=== PATIENT | female | born 1990 | race African-American/Black ===

== ENCOUNTER 2018-09-06 18:30 | Emergency (ER) | payer OTHER ==
--- NOTE | 2018-09-06 18:48 | PDOC ---
Rapid Medical Evaluation Time Seen by Provider: 09/06/18 18:47 Medical Evaluation: Allergies Allergy/AdvReac Type Severity Reaction Status Date / Time No Known Allergies Allergy Verified 04/09/16 15:01 09/06/18 18:47 I performed a brief in-person evaluation of this patient. Chief complaint: , cramping and spotting, u/s at outside facility showed no IUP ("too early") Pertinent physical exam findings: Pain and tenderness R>L I have ordered the following: CBC, BMP, beta hcg, T&S, u/s r/o ectopic Patient to proceed to the ED for further evaluation. Discharge Disposition - Diagnosis Vaginal bleeding during - Referrals - Patient Instructions - Post Discharge Activity
[2018-09-06 18:52] VITALS: BP 114/59; PULSE 85; TEMP 98.6; BMI 29.9
[2018-09-06 19:15] LABS: BASO % 0.3 % (0-2.0); EOS % 0.5 % (0-4.5); HEMATOCRIT 37.3 % (32.4-45.2); HEMOGLOBIN 12.6 GM/dL (10.7-15.3); LYMPH % 23.6 % (8-40); MCH 25.4 pg (25.7-33.7); MCHC 33.7 g/dl (32.0-36.0); MEAN CELL VOLUME 75.6 fl (80-96); MEAN PLT VOLUME 7.5 fl (7.5-11.1); MONO % 14.3 % (3.8-10.2); NEUT % 61.3 % (42.8-82.8); PLATELET COUNT 264 K/MM3 (134-434); RBC 4.93 M/mm3 (3.60-5.2); RDW 14.1 % (11.6-15.6); WHITE BLOOD COUNT 7.2 K/mm3 (4.0-10.0)
[2018-09-06 19:59] LABS: ANION GAP 8 MMOL/L (8-16); BLOOD UREA NITROGEN 11 mg/dL (7-18); CALCIUM 9.2 mg/dL (8.5-10.1); CHLORIDE 107 mmol/L (98-107); CO2 24 mmol/L (21-32); CREATININE 0.8 mg/dL (0.55-1.3); GLUCOSE,RANDOM 81 mg/dL (74-106); SODIUM 139 mmol/L (136-145)
--- NOTE | 2018-09-06 20:29 | PDOC ---
History of Present Illness - General Chief Complaint: Vaginal Bleeding Stated Complaint: 8 WKS /SPOTTING/CRAMPING Time Seen by Provider: 09/06/18 18:47 History Source: Patient Exam Limitations: No Limitations - History of Present Illness Initial Comments: 09/06/18 20:23 Pt is a 28yo F A3 at 4 weeks gestation based on conception and hormone dating presenting to ED with complaints of vaginal spotting that started today associated with cramping and back pain. She states the bleeding has been light, and would not have soaked a pad. She has irregular periods and has been [facility] during this . She had a sonogram done which could not visualize an IUP at the time. She was told to come to the emergency room if she had vaginal bleeding. She denies lightheadedness, palpitations, sob , vaginal discharge, fevers, chills. PMD: Matt Hernandez PMH: none PSH: D&C Meds: none Allergies: nkda Social: occasional alcohol use, hookah Past History - Past Medical History Allergies/Adverse Reactions: Allergies Allergy/AdvReac Type Severity Reaction Status Date / Time No Known Allergies Allergy Verified 09/06/18 18:47 Home Medications: Ambulatory Orders NK [No Known Home Medication] 09/06/18 Asthma: No Cancer: No Cardiac Disorders: No COPD: No Diabetes: No HTN: No Seizures: No Thyroid Disease: No - Reproductive History (#): 4 Para: 0 Cervical CA: No Dysfunctional Uterine Bleeding: No Ectopic : No Endometrial CA: No Polycystic Ovaries: No Therapeutic (s) & number: No Tubal Ligation: No Spontaneous : 3 - Immunization History Immunization Up to Date: Yes - Suicide/Smoking/Psychosocial Hx Smoking Status: No Smoking History: Current some day smoker Have you smoked in the past 12 months: No Number of Cigarettes Smoked Daily: 1 Information on smoking cessation initiated: No Hx Alcohol Use: No Drug/Substance Use Hx: No Hx Substance Use Treatment: No Review of Systems - Review of Systems Constitutional: No: Chills, Fever HEENTM: No: Symptoms Reported Respiratory: No: Symptoms reported ABD/GI: Yes: See HPI, Abdominal cramping : Yes: See HPI Musculoskeletal: No: Back Pain, Joint Pain, Neck Pain Integumentary: No: Symptoms Reported Neurological: No: Symptoms reported *Physical Exam - Vital Signs Last Vital Signs Temp Pulse Resp BP Pulse Ox 98.6 F 85 16 114/59 L 100 09/06/18 18:48 09/06/18 18:48 09/06/18 18:48 09/06/18 18:48 09/06/18 18:48 - Physical Exam General Appearance: Yes: Nourished, Appropriately Dressed. No: Apparent Distress HEENT: positive: EOMI, REAL Neck: positive: Trachea midline, Supple Respiratory/Chest: positive: Lungs Clear, Normal Breath Sounds Cardiovascular: positive: Regular Rhythm, Regular Rate Vascular Pulses: Carotid (R): 2+, Carotid (L): 2+, Dorsalis-Pedis (R): 2+, Doralis-Pedis (L): 2+ Gastrointestinal/Abdominal: positive: Normal Bowel Sounds, Tender (slight suprapubic tenderness), Soft Musculoskeletal: negative: CVA Tenderness, Vertebral Tenderness Extremity: positive: Normal Capillary Refill, Normal Inspection Integumentary: positive: Normal Color, Dry, Warm Neurologic: positive: fruit trimmer II-XII NML intact, Fully Oriented, Alert, Normal Mood/ Affect, Normal Response, Motor Strength 5/5 Moderate Sedation - Procedure Monitoring Vital Signs: Procedure Monitoring Vital Signs Temperature 98.6 F 09/06/18 18:48 Pulse Rate 85 09/06/18 18:48 Respiratory Rate 16 09/06/18 18:48 Blood Pressure 114/59 L 09/06/18 18:48 O2 Sat by Pulse Oximetry (%) 100 09/06/18 18:48 ED Treatment Course - LABORATORY CBC & Chemistry Diagram: 09/06/18 18:57 09/06/18 18:57 - ADDITIONAL ORDERS Additional order review: Laboratory Results 09/06/18 18:57 Sodium 139 Potassium 4.0 Chloride 107 Carbon Dioxide 24 Anion Gap 8 BUN 11 Creatinine 0.8 Creat Clearance w eGFR 86.70 Random Glucose 81 Calcium 9.2 Beta HCG, Quant 6418.9 09/06/18 18:57 RBC 4.93 MCV 75.6 L MCHC 33.7 RDW 14.1 D MPV 7.5 Neutrophils % 61.3 Lymphocytes % 23.6 D Monocytes % 14.3 H Eosinophils % 0.5 Basophils % 0.3 Medical Decision Making - Medical Decision Making 09/06/18 20:28 Pt is a 28yo F A3 at 4 weeks gestation based on conception and hormone dating presenting to ED with complaints of vaginal spotting that started today associated with cramping and back pain. She states the bleeding has been light, and would not have soaked a pad. She has irregular periods and has [facility] . She had a sonogram done which could not visualize an IUP at the time. She was told to come to the emergency room if she had vaginal bleeding. She denies lightheadedness, palpitations, sob , vaginal discharge, fevers, chills. Vitals: wnl PE: no blood in vaginal vault. slight abdominal tenderness, no blood in vaginal vault ddx includes but not limited to ectopic, (spontaneous v. inevitable v. threatened) labs and TVUS ordered by EVELYN novoa. TVUS shows 5week IUP with yolk sac. Pt interested in elective . Pt should follow up with director of corporate real estate or pp for options. Pt told to return here, at ob office or pp for repeat testing and tvus. pt otherwis stable. can be dc home. 09/07/18 06:36 *DC/Admit/Observation/Transfer Diagnosis at time of Disposition: Vaginal bleeding during - Discharge Dispostion Disposition: HOME Condition at time of disposition: Good Decision to Admit order: No - Referrals Referrals: Juarez Hernandez MD [Primary Care Provider] - - Patient Instructions Printed Discharge Instructions: DI for Vaginal Bleeding During Additional Instructions: You were seen in the emergency room today for vaginal bleeding during . The hormone level correlates to a 3-4 week and the ultrasound shows what maybe a 5 week intrauterine . You would need to come back here, to your [facility] or [facility] in 2 days for repeat hormone testing and ultrasound to see if the is viable or not. Come back to the emergency room if you have increasing pain, have vaginal bleeding with soaking of 1 pad/hr or more, are passing clots, you feel lightheaded or if any new concerning symptom develops. Thank you - Post Discharge Activity
--- NOTE | 2018-09-06 22:00 | PDOC ---
Attending Attestation - HPI HPI: The patient is a 28 year old female A3 at 4 weeks gestation (according to conception & hormone dating), with no significant PMH, who presents to the emergency department today complaining of vaginal bleeding for one day. Patient reports light vaginal spotting this morning, and endorses associated cramping and back pain. Patient had sonogram, but IUP could not be visualized and was advised to come to the ED if she experienced any vaginal bleeding. The patient denies chest pain, shortness of breath, headache and dizziness. Denies fever, chills, nausea, vomit, diarrhea and constipation. Denies dysuria, frequency, urgency and hematuria. Allergies: NKA Past surgical history: None reported Social history: Occasional EtOH consumption, hookah use PCP: Dr. Juarez Hernandez O[facility]: [facility] 09/06/18 22:28 - Physicial Exam PE: ADULT PE GENERAL: The patient is in no acute distress. HEAD: Normal with no signs of trauma. EYES: PERRLA, EOMI, sclera anicteric, conjunctiva clear. ENT: Ears normal, nares patent, oropharynx clear without exudates. Moist mucous membranes. NECK: Normal range of motion, supple without lymphadenopathy, JVD, or masses. LUNGS: Breath sounds equal, clear to auscultation bilaterally. No wheezes, and no crackles. HEART:Regular rate and rhythm, normal S1 and S2 without murmur, rub or gallop. ABDOMEN:Soft, normoactive bowel sounds. No guarding, no rebound. No masses palpable. VAGINAL: +Mild tenderness to palpation over the suberpubic region. No blood in vaginal vault. EXTREMITIES: Normal range of motion, no edema. No clubbing or cyanosis. No erythema, or tenderness. NEUROLOGICAL: Cranial nerves II through XII grossly intact. Normal speech. No focal neurological deficits. MUSCULOSKELETAL: Back non-tender to palpation, no CVA tenderness SKIN: Warm, Dry, normal turgor, no rashes or lesions noted. 09/06/18 22:29 - Medical Decision Making EXAM#: TYPE/EXAM: RESULT: [id number] US/ <14WKS US Obstetrical ultrasound Clinical information: right pelvic pain, spotting, evaluate for ectopic Impression: A single intrauterine gestation is seen at approximately 5 weeks 5 days. No definite embryonic cardiac activity is seen at this time - ? early viable versus possible nonviable . Correlate with beta hCG levels, follow-up sonography. Reported By: Juan A Gray MD 09/06/18 20:50 Documentation prepared by ALBINO Beatty, acting as medical collections representative for Deepika Chowdhury MD. 09/06/18 22:30 <Rosie Bee - Last Filed: 09/06/18 22:30> - Resident Resident Name: Debbi Fernandes - ED Attending Attestation I have performed the following: I have examined & evaluated the patient, The case was reviewed & discussed with the resident, I agree w/resident's findings & plan, Exceptions are as noted - Medical Decision Making 09/08/18 00:44 28yo F A3, 4 weeks by dates, p/w vaginal spotting, cramping and back pain. Not saturating any pads No lightheadedness, palpitations, sob, weakness DD: includes but not limited to ectopic, (spontaneous v. inevitable v. threatened) U/S results as above Follow up with residential real estate appraiser <Deepika Chowdhury - Last Filed: 09/08/18 00:46>
== END 2018-09-06 21:38 | disposition home or self-care (01) ==
LOC: JER 18:30
DX: O26.891 Other specified pregnancy related conditions, first trimester (principal); O20.8 Other hemorrhage in early pregnancy; Z3A.01 Less than 8 weeks gestation of pregnancy
CPT/HCPCS: 36415; 76801-TC; 80048; 84702; 85025; 86850; 86900; 86901; 99281-25

== ENCOUNTER 2019-05-07 07:22 | Emergency (ER) | payer OTHER ==
[2019-05-07 07:29] VITALS: BP 106/70; PULSE 80; TEMP 98; BMI 28.2
[2019-05-07] MEDS ORDERED: TETRACAINE 0.5% HCL 0.6ML DROPPER.BOTTLE OS ONE (08:12)
[2019-05-07] MEDS ORDERED: FLUORESCEIN NA 1 EA STRIP OS ONE (08:12)
[2019-05-07] MEDS ORDERED: TETRACAINE 0.5% OPHTH SOLN 2 ML BOTTLE ONE (08:13)
--- NOTE | 2019-05-07 08:14 | PDOC ---
History of Present Illness - General Chief Complaint: Eye Problem Stated Complaint: BI LATERAL EYE PAIN/ITCHING Time Seen by Provider: 05/07/19 07:37 History Source: Patient Exam Limitations: No Limitations Past History - Travel Traveled outside of the country in the last 30 days: No Close contact w/someone who was outside of country & ill: No - Past Medical History Allergies/Adverse Reactions: Allergies Allergy/AdvReac Type Severity Reaction Status Date / Time No Known Allergies Allergy Verified 05/07/19 07:29 Home Medications: Ambulatory Orders Diphenhydramine HCl [Benadryl -] 25 mg PO Q8H #21 capsule 05/07/19 Erythromycin 0.5% Eye Ointment [Erythromycin 0.5% Eye Ointment -] 1 applic OU TID #1 tube 05/07/19 Asthma: No Cancer: No Cardiac Disorders: No COPD: No Diabetes: No HTN: No Seizures: No Thyroid Disease: No - Reproductive History (#): 4 Para: 0 Cervical CA: No Dysfunctional Uterine Bleeding: No Ectopic : No Endometrial CA: No Polycystic Ovaries: No Therapeutic (s) & number: No Tubal Ligation: No Spontaneous : 3 - Immunization History Immunization Up to Date: Yes - Psycho Social/Smoking Cessation Hx Smoking Status: No Smoking History: Never smoked Have you smoked in the past 12 months: No Number of Cigarettes Smoked Daily: 1 Information on smoking cessation initiated: No Hx Alcohol Use: No Drug/Substance Use Hx: No Hx Substance Use Treatment: No Review of Systems - Review of Systems Able to Perform ROS?: Yes Comments:: 05/07/19 08:56 CONSTITUTIONAL: Absent: fever, chills, diaphoresis, generalized weakness, malaise, loss of appetite HEENT: Present: bilateral eye itching Absent: rhinorrhea, nasal congestion, throat pain , throat swelling, difficulty swallowing, mouth swelling, ear pain, eye pain, visual Changes SKIN: Absent: rash, itching, pallor NEUROLOGIC: Absent: headache, focal weakness or paresthesias, dizziness, unsteady gait, seizure, mental status changes, bladder or bowel incontinence PSYCHIATRIC: Absent: anxiety, depression, suicidal or homicidal ideation, hallucinations. Is the patient limited Czech proficient: No *Physical Exam - Vital Signs Last Vital Signs Temp Pulse Resp BP Pulse Ox 98 F 80 17 106/70 99 05/07/19 07:27 05/07/19 07:27 05/07/19 07:27 05/07/19 07:27 05/07/19 07:27 - Physical Exam Comments: 05/07/19 08:57 GENERAL: The patient is awake, alert, and fully oriented, in no acute distress. HEAD: Normal with no signs of trauma. EYES: Pupils equal, round and reactive to light, extraocular movements intact, sclera anicteric, conjunctiva clear. Fluorescein staining reveals no corneal abrasions B/L. EXTREMITIES: Normal range of motion, no edema. NEUROLOGICAL: Normal speech, normal gait. PSYCH: Normal mood, normal affect. SKIN: Warm, Dry, normal turgor, no rashes or lesions noted. Medical Decision Making - Medical Decision Making 05/07/19 09:51 The patient is a 29-year-old female with no past medical history who presents to the ER today for bilateral eye itching, left worse than right. She states that she used a different old mascara the night before and then noticed the itching under her eyes. She states that the pain increases with the wind. Denies visual changes, fever, blurry vision, headache A/P: Eye itching On exam no obvious rashes, fluorescein staining is negative for corneal abrasions. No visual changes noted Possible allergic reaction versus infection from using old make-up. Will recommend erythromycin ointment, Benadryl and ophthalmology referral Discharge home I discussed the physical exam findings, ancillary test results and final diagnoses with the patient. I answered all of the patient's questions. The patient was satisfied with the care received and felt comfortable with the discharge plan and treatment plan. The Patient agrees to follow up with the primary care physician/specialist within 24-72 hours. Return precautions were given. Discharge - Discharge Information Problems reviewed: Yes Clinical Impression/Diagnosis: Itchy eyes Condition: Stable Disposition: HOME - Admission No - Additional Discharge Information Prescriptions: Diphenhydramine HCl [Benadryl -] 25 mg PO Q8H #21 capsule Erythromycin 0.5% Eye Ointment [Erythromycin 0.5% Eye Ointment -] 1 applic OU TID #1 tube - Follow up/Referral Referrals: Juarez Hernandez MD [Primary Care Provider] - - Patient Discharge Instructions Patient Printed Discharge Instructions: DI for Eye Allergic Reaction Additional Instructions: You were evaluated for your eye pain You do not have any corneal abrasions. Please use erythromycin ointment 3 times a day to help with the irritation You may take Benadryl 25 mg 3 times a day to help with the itching. You may have had an allergic reaction from the mascara. Please keep the follow-up appointment you have at the director of clinical education for Sunday. Return to the ER for any new or worsening symptoms. - Post Discharge Activity Work/Back to School Note: Back to Work
[2019-05-07] MEDS ORDERED: FLUORESCEIN NA 1 EA STRIP ONE (08:27)
[2019-05-07] MEDS ORDERED: ERYTHROMYCIN 0.5% OPHTHALMIC OINTMENT 3.5 GM TUBE OU ONE (08:37)
[2019-05-07] MEDS ORDERED: ERYTHROMYCIN 0.5% OPHTHALMIC OINTMENT 3.5 GM TUBE ONE (08:38)
== END 2019-05-07 08:48 | disposition home or self-care (01) ==
LOC: JER 07:22
DX: H57.89 Other specified disorders of eye and adnexa (principal); L29.9 Pruritus, unspecified
CPT/HCPCS: 99281-25

== ENCOUNTER 2019-06-02 19:22 | Emergency (ER) | payer OTHER ==
[2019-06-02 19:48] VITALS: BP 127/78; PULSE 82; TEMP 97.8; BMI 28.7
--- NOTE | 2019-06-02 19:50 | PDOC ---
Rapid Medical Evaluation Time Seen by Provider: 06/02/19 19:44 Medical Evaluation: Allergies Allergy/AdvReac Type Severity Reaction Status Date / Time No Known Allergies Allergy Verified 05/07/19 07:29 06/02/19 19:44 Pt presents to the ER for SOB. LMP 04/21 (+) preg test. Pt states she is also having shortness of breath and is unable to take a deep full breath. Exam: Lungs CTAB, no calf pain Orders: Labs, venous duplex , EKG Pt to proceed to the ER for further evaluation Discharge Disposition - Diagnosis Shortness of breath - Referrals - Patient Instructions - Post Discharge Activity
--- NOTE | 2019-06-02 20:19 | PDOC ---
History of Present Illness - General Chief Complaint: Shortness of Breath Stated Complaint: S.O.B & PAIN (1 MTH PREG) Time Seen by Provider: 06/02/19 19:44 - History of Present Illness Initial Comments: 06/02/19 21:34 HPI: 29 y/o F A4 with hx of anemia presenting with palpitations and SOB. She reports palpitations started 2 days ago and was intermittent and wasnt of big concern to her. However, after she left work today, she felt SOB while standing. [place] was [place] the bus station and 10min after arriving and waiting for the bus, she felt SOB requiring deep inspiration and with deep inspirations she felt pleuritic left sided chest pain with radiation to her shoulder and scapula. She denies fever, chills, rhinorrhea, congerstion, cough, wheezing, abd pain, n/v, dysuria, vag bleeding/discharge, calf pain. PMHx: as noted above ROS: as noted SHx: occasional hookah; occasional alcohol use; occasional marijuana Allergies: NKDA ROS: GENERAL/CONSTITUTIONAL: No fever or chills. No weakness. HEAD, EYES, EARS, NOSE AND THROAT: No change in vision. No ear pain or discharge. No sore throat. CARDIOVASCULAR: +chest pain, shortness of breath RESPIRATORY: No cough, wheezing, or hemoptysis. GASTROINTESTINAL: No nausea, vomiting, diarrhea or constipation. GENITOURINARY: No dysuria, frequency, or change in urination. MUSCULOSKELETAL: No joint or muscle swelling or pain. No neck or back pain. SKIN: No rash NEUROLOGIC: No headache, vertigo, loss of consciousness, or change in strength/ sensation. ENDOCRINE: No increased thirst. No abnormal weight change HEMATOLOGIC/LYMPHATIC: No anemia, easy bleeding, or history of blood clots. ALLERGIC/IMMUNOLOGIC: No hives or skin allergy. PE: GENERAL: Awake, alert, and fully oriented, no acute distress HEAD: No signs of trauma, normocephalic, atraumatic EYES: EOMI, sclera anicteric, conjunctiva clear ENT: Auricles normal inspection, hearing grossly normal, nares patent, oropharynx clear without exudates. Moist mucosa NECK: Normal ROM, no lymphadenopathy LUNGS: No increased work of breathing, symmetrical chest rise, clear to auscultation bilaterally, no wheezes, crackles or rhonchi HEART: Regular rate and rhythm, normal S1 and S2, no murmurs, peripheral pulses 2+ and equal bilaterally. ABDOMEN: Soft, nondistended, RLQ discomfort, normoactive bowel sounds. No guarding, no rebound. No masses. No CVAT EXTREMITIES: Normal inspection, Normal range of motion, no edema. No clubbing or cyanosis. NEUROLOGICAL: Cranial nerves II through XII grossly intact. Normal speech, normal gait, no focal sensorimotor deficits SKIN: Warm, Dry, normal turgor, no rashes or lesions noted Past History - Past Medical History Allergies/Adverse Reactions: Allergies Allergy/AdvReac Type Severity Reaction Status Date / Time No Known Allergies Allergy Verified 06/02/19 19:47 Home Medications: Ambulatory Orders Diphenhydramine HCl [Benadryl -] 25 mg PO Q8H #21 capsule 05/07/19 Erythromycin 0.5% Eye Ointment [Erythromycin 0.5% Eye Ointment -] 1 applic OU TID #1 tube 05/07/19 Anemia: Yes Asthma: No Cancer: No Cardiac Disorders: No COPD: No Diabetes: No HTN: No Seizures: No Thyroid Disease: No - Reproductive History (#): 4 Para: 0 Cervical CA: No Dysfunctional Uterine Bleeding: No Ectopic : No Endometrial CA: No Polycystic Ovaries: No Therapeutic (s) & number: No Tubal Ligation: No Spontaneous : 3 - Immunization History Immunization Up to Date: Yes - Psycho Social/Smoking Cessation Hx Smoking Status: No Smoking History: Never smoked Have you smoked in the past 12 months: No Number of Cigarettes Smoked Daily: 1 Information on smoking cessation initiated: No Hx Alcohol Use: No Drug/Substance Use Hx: No Hx Substance Use Treatment: No *Physical Exam - Vital Signs Last Vital Signs Temp Pulse Resp BP Pulse Ox 97.8 F 82 19 127/78 100 06/02/19 19:44 06/02/19 19:44 06/02/19 19:44 06/02/19 19:44 06/02/19 19:44 ED Treatment Course - LABORATORY CBC & Chemistry Diagram: 06/02/19 20:42 06/02/19 20:42 Medical Decision Making - Medical Decision Making 06/02/19 23:27 29 y/o F A4 with hx of anemia presenting with palpitations and SOB. VSS, AF. PE with RLQ ttp. Given no complaints of abd pain, n/v, VSS, AF and normal wbc, unlikely to be appy. Will workup for ectopic. -cbc, cmp, ua, bhcg, cxr, ekg -tvus, duplex BL LE 06/02/19 23:29 labs unremarkable tvus with single IUP 5w6d; no ectopic negative duplex cxr with no acute pathology ekg nsr with nl intervals, no s1q3t3 or evidence of right heart strain SOB completely resolved without any intervention; given resolution of symptoms without intervention, nl ekg and cxr, and nl vitals will plan for DC patient with return pcxns; unlikely to be PE Discharge - Discharge Information Problems reviewed: Yes Clinical Impression/Diagnosis: Shortness of breath Condition: Stable Disposition: HOME - Follow up/Referral Referrals: Juarez Hernandez MD [Primary Care Provider] - - Patient Discharge Instructions Patient Printed Discharge Instructions: DI for Shortness of Breath Additional Instructions: Additional Instructions: Please return to the emergency department with any new or worsening symptoms or concerns including worsening shortness of breath, severe chest pain, fainting. Please follow up with your primary care physician within 72 hours for re- evaluation as needed Please followup with your ObGyn for further management You may take Tylenol 650mg every 6 hours as needed for pain control - Post Discharge Activity
[2019-06-02 21:12] LABS: BASO % 0.4 % (0-2.0); EOS % 0.7 % (0-4.5); HEMATOCRIT 39.1 % (32.4-45.2); HEMOGLOBIN 12.9 GM/dL (10.7-15.3); LYMPH % 32.5 % (8-40); MCH 24.2 pg (25.7-33.7); MEAN CELL VOLUME 73.3 fl (80-96); MEAN PLT VOLUME 7.5 fl (7.5-11.1); MONO % 12.6 % (3.8-10.2); NEUT % 53.8 % (42.8-82.8); PLATELET COUNT 313 K/MM3 (134-434); RBC 5.34 M/mm3 (3.60-5.2); RDW 14.7 % (11.6-15.6)
[2019-06-02 21:26] LABS: INR 1.03 (0.83-1.09); PROTHROMBIN TIME (PATIENT) 12.1 SEC (9.7-13.0)
[2019-06-02 21:40] LABS: ALBUMIN 4.3 g/dl (3.4-5.0); BILIRUBIN,TOTAL 0.6 mg/dL (0.2-1); BLOOD UREA NITROGEN 14.1 mg/dL (7-18); CALCIUM 9.2 mg/dL (8.5-10.1); CREATININE 0.9 mg/dL (0.55-1.3); POTASSIUM 3.7 mmol/L (3.5-5.1); TOT PROT 8.4 g/dl (6.4-8.2)
[2019-06-02 21:55] LABS: PH,URINE 6.5 (5.0-8.0); URINE APPEARANCE CLEAR; URINE BILIRUBIN NEGATIVE (NEGATIVE); URINE COLOR YELLOW; URINE GLUCOSE (UA) NEGATIVE (NEGATIVE); URINE KETONE NEGATIVE (NEGATIVE); URINE LEUK ESTERASE NEGATIVE (NEGATIVE); URINE NITRITE NEGATIVE (NEGATIVE); URINE PROTEIN NEGATIVE (NEGATIVE)
--- NOTE | 2019-06-02 22:23 | PDOC ---
Documentation entered by Lynette Tillman SCRIBE, acting as scribe for Heaven Gonsales MD. Heaven Gonsales MD: This documentation has been prepared by the Primo barragan Nirvannie, SCRIBE, under my direction and personally reviewed by me in its entirety. I confirm that the documentation accurately reflects all work, treatment, procedures, and medical decision making performed by me. Attending Attestation - Resident Resident Name: Rubi Limon - ED Attending Attestation I have performed the following: I have examined & evaluated the patient, The case was reviewed & discussed with the resident, I agree w/resident's findings & plan - HPI HPI: 06/02/19 22:21 29-year-old female who states she is experiencing shortness of breath just prior to arrival - Physicial Exam PE: 06/02/19 22:22 Well-nourished well-developed 29-year-old female no acute distress Head normocephalic atraumatic Neck no bruits, no JVD Lungs are clear to auscultation bilaterally CVS is regular rate and rhythm S1-S2 no gallops murmurs or rubs Abdomen is nontender No flank tenderness Skin is warm and dry Neuro alert and oriented x3 ambulating with ease no gross focal neuro deficits - Medical Decision Making 06/02/19 22:22 Patient's EKG is normal sinus rhythm at 7 the 8 bpm, normal QTC, no signs of ischemia or acute ischemia Patient is not hypoxic, she is not tachypneic 06/02/19 23:25 Pelvic ultrasound shows single live intrauterine of 5 weeks and 6 days with heart tones of 122 bpm she states her sob resolved without intervention imp early continue care
--- NOTE | 2019-06-03 09:07 | EKG ---
Test Reason : Blood Pressure : / mmHG Vent. Rate : 078 BPM Atrial Rate : 078 BPM P-R Int : 180 ms QRS Dur : 090 ms QT Int : 380 ms P-R-T Axes : 077 073 074 degrees QTc Int : 433 ms NORMAL SINUS RHYTHM NORMAL ECG NO PREVIOUS ECGS AVAILABLE Confirmed by Ori Leyva MD ([id number]) on 06/03/2019 9:06:46 AM Referred By: Confirmed By:Ori Leyva MD
== END 2019-06-03 00:32 | disposition home or self-care (01) ==
LOC: JER 19:22
DX: R06.02 Shortness of breath (principal); D64.9 Anemia, unspecified
CPT/HCPCS: 36415; 71046-TC-FY; 76817-TC; 80053; 81003; 84702; 85025; 85610; 87086; 93005; 93010; 93970-TC; 99283-25

== ENCOUNTER 2021-05-15 19:25 | Emergency (ER) | payer OTHER ==
[2021-05-15 19:39] VITALS: BP 107/70; PULSE 76; TEMP 97.9; BMI 28.8
[2021-05-15] MEDS ORDERED: SODIUM CHLORIDE 0.9% 500 ML INFUS.BAG IV ONE (21:14)
[2021-05-15 21:33] LABS: URINE APPEARANCE CLEAR; URINE BILIRUBIN NEGATIVE (NEGATIVE); URINE COLOR YELLOW; URINE GLUCOSE (UA) NEGATIVE (NEGATIVE); URINE KETONE TRACE (NEGATIVE); URINE LEUK ESTERASE NEGATIVE (NEGATIVE); URINE NITRITE NEGATIVE (NEGATIVE); URINE PROTEIN NEGATIVE (NEGATIVE)
[2021-05-15 21:36] LABS: BASO % 0.7 % (0-2.0); EOS % 1.3 % (0-4.5); HEMATOCRIT 34.9 % (32.4-45.2); HEMOGLOBIN 11.8 GM/dL (10.7-15.3); LYMPH % 36.3 % (8-40); MCH 24.6 pg (25.7-33.7); MCHC 33.6 g/dl (32.0-36.0); MEAN CELL VOLUME 73.1 fl (80-96); MEAN PLT VOLUME 7.3 fl (7.5-11.1); MONO % 12.6 % (3.8-10.2); NEUT % 49.1 % (42.8-82.8); PLATELET COUNT 234 10^3/uL (134-434); RBC 4.78 M/mm3 (3.60-5.2); RDW 14.3 % (11.6-15.6); WHITE BLOOD COUNT 5.8 K/mm3 (4.0-10.0)
[2021-05-15 22:00] LABS: ALBUMIN 4.1 g/dl (3.4-5.0); BLOOD UREA NITROGEN 15.4 mg/dL (7-18); CALCIUM 9.2 mg/dL (8.5-10.1)
[2021-05-15 22:04] LABS: CREATININE 0.8 mg/dL (0.55-1.3)
[2021-05-15 22:05] LABS: BILIRUBIN,TOTAL 0.8 mg/dL (0.2-1); TOT PROT 7.8 g/dl (6.4-8.2)
== END 2021-05-15 23:38 | disposition home or self-care (01) ==
LOC: JER 19:25
DX: R10.9 Unspecified abdominal pain (principal)
CPT/HCPCS: 36415; 74176-TC; 80053; 81003; 84703; 85025; 87086; 87491; 87591; 87661; 99285-25

== ENCOUNTER 2021-12-20 15:37 | Emergency (ER) | payer OTHER ==
[2021-12-20 15:53] VITALS: BP 123/76; PULSE 76; TEMP 98.6; BMI 25.6
== END 2021-12-20 18:17 | disposition left against medical advice (07) ==
LOC: JER 15:37
DX: R53.1 Weakness (principal); R06.02 Shortness of breath
CPT/HCPCS: 99281-25

== ENCOUNTER 2024-04-04 13:48 | Emergency (ER) | payer OTHER ==
[2024-04-04 13:55] VITALS: BP 112/72; PULSE 71; RESP 18; TEMP 98.7; BMI 25.7
[2024-04-04 15:15] LABS: THROAT:GRP A STREP NOT DETECTED (NOTDETECTED)
== END 2024-04-04 15:59 | disposition home or self-care (01) ==
LOC: JERFT 13:48
DX: J03.90 Acute tonsillitis, unspecified (principal); Z20.822 Contact with and (suspected) exposure to COVID-19
CPT/HCPCS: 0241U-QW; 87651; 99283-25